=== PATIENT | male | born 1960 | race Caucasian/White ===

== ENCOUNTER 2018-10-30 02:44 | Inpatient (IN) ==
[2018-10-30] MEDS ORDERED: MORPHINE 4 MG/1 ML VIAL IV STA (03:11)
[2018-10-30] MEDS ORDERED: ONDANSETRON 4 MG/2 ML VIAL IV STA (03:12)
[2018-10-30] MEDS ORDERED: ASPIRIN 325 MG TABLET PO STA (03:13)
[2018-10-30] MEDS ORDERED: NITROGLYCERIN 2% OINT 1 INCH/GM PACK TOP STA (03:13)
[2018-10-30] MEDS ORDERED: ENOXAPARIN 100 MG/ML SYRINGE SUBCUT STA (03:13)
[2018-10-30 03:14] LABS: Basophils # 0.1 10*3/uL (0.0-0.2); Basophils % 0.8 % (0.0-0.8); Eosinophils # 0.2 10*3/uL (0.0-0.87); Eosinophils % 1.9 % (0.00-10.9); Hematocrit 46.5 VOL% (42.0-52.0); Hemoglobin 15.9 GM/DL (14.0-18.0); Immature Granulocytes % 0.2 %; Immature Granulocytes Absolute 0.02 #; Lymphocytes % 32.1 % (21.2-54.2); Mean Corpuscular HGB Conc 34.2 GM/DL (32-36); Mean Corpuscular Hemoglobin 30 PG (27-34); Mean Corpuscular Volume 87.7 FL (87-102); Monocytes # 0.7 10*3/uL (0.11-0.8); Monocytes % 7.5 % (1.7-12.7); Neutrophils # 5.4 10*3/uL (1.4-7.4); Neutrophils % 57.5 % (38.7-73.9); Platelet Count 171 T/CUMM (130-400); Red Cell Distribution Width 13.4 % (9.3-17.3); White Blood Count 9.5 T/CUMM (4-12)
[2018-10-30 03:26] LABS: INR 0.9; PT Patient Result 9.9 SECS; Partial Thromboplastin Time 26.4 SECS (0-40)
[2018-10-30 03:37] LABS: Bilirubin,Total 0.4 MG/DL (0.2-1.0); Calcium 9.3 MG/DL (8.5-10.1); Osmolality,Calculated 281.5 MOS/KG (273-304); Potassium 3.8 MMOL/L (3.5-5.1); Total Protein 7.7 G/DL (6.4-8.3)
[2018-10-30] MEDS ORDERED: NITROGLYCERIN DRIP 50 MG/250 ML BOTTLE IV ONE (03:44)
[2018-10-30] MEDS: NITROGLYCERIN DRIP 50 MG/250 ML BOTTLE IV SCH (03:53)
[2018-10-30] MEDS ORDERED: TIROFIBAN IV ONE ×2 (04:00→04:10)
[2018-10-30] MEDS ORDERED: TIROFIBAN 5,000 MCG/100 ML PREMIX IV ONE ×2 (04:00→07:35)
[2018-10-30] MEDS ORDERED: NITROGLYCERIN DRIP 50 MG/250 ML BOTTLE IV PRN (04:20)
[2018-10-30] MEDS ORDERED: TIROFIBAN 5,000 MCG/100 ML PREMIX IV SCH ×2 (04:30→09:00)
[2018-10-30] MEDS: SODIUM CHLORIDE 0.9% 1,000 ML IV SCH ×3 (04:35→20:15)
[2018-10-30] MEDS ORDERED: HYDROmorphone 2 MG/1 ML VIAL ONE (06:53)
[2018-10-30] MEDS ORDERED: MIDAZOLAM 2 MG/2 ML VIAL ONE ×2 (06:53→08:24)
[2018-10-30] MEDS ORDERED: TICAGRELOR 90 MG TABLET ONE (08:37)
[2018-10-30] MEDS ORDERED: ZALEPLON 5 MG CAPSULE PO PRN (08:38)
[2018-10-30] MEDS ORDERED: NITROGLYCERIN SL 0.4 MG TABLET SL PRN (08:38)
[2018-10-30] MEDS: ASPIRIN EC 81 MG TABLET PO SCH (10:06)
[2018-10-30] MEDS: CARVEDILOL 12.5 MG TABLET PO SCH ×2 (10:06→20:10)
[2018-10-30] MEDS: ACETAMINOPHEN 325 MG TABLET PO PRN ×2 (13:21→20:15)
[2018-10-30] MEDS: ROSUVASTATIN 20 MG TABLET PO SCH (20:10)
[2018-10-30] MEDS: TICAGRELOR 90 MG TABLET PO SCH (20:10)
[2018-10-30] MEDS: HYDROmorphone 2 MG/1 ML VIAL IV PRN (21:40)
[2018-10-31] MEDS: HYDROmorphone 2 MG/1 ML VIAL IV PRN ×2 (03:29→08:20)
[2018-10-31] MEDS: NITROGLYCERIN DRIP 50 MG/250 ML BOTTLE IV SCH (04:13)
[2018-10-31] MEDS: SODIUM CHLORIDE 0.9% 1,000 ML IV SCH ×2 (04:13→14:31)
[2018-10-31 05:22] LABS: Basophils % 0.4 % (0.0-0.8); Eosinophils # 0.2 10*3/uL (0.0-0.87); Eosinophils % 2.2 % (0.00-10.9); Hematocrit 38.5 VOL% (42.0-52.0); Hemoglobin 12.8 GM/DL (14.0-18.0); Immature Granulocytes % 0.1 %; Immature Granulocytes Absolute 0.01 #; Lymphocytes # 2.2 10*3/uL (1.4-4.0); Mean Corpuscular HGB Conc 33.2 GM/DL (32-36); Mean Corpuscular Hemoglobin 30 PG (27-34); Mean Corpuscular Volume 90.2 FL (87-102); Mean Platelet Volume 11.3 FL (9.6-12.0); Monocytes # 0.6 10*3/uL (0.11-0.8); Monocytes % 8.3 % (1.7-12.7); Neutrophils # 4.1 10*3/uL (1.4-7.4); Platelet Count 117 T/CUMM (130-400); Red Blood Count 4.27 MC/CUMM (3.8-5.5); Red Cell Distribution Width 13.4 % (9.3-17.3); White Blood Count 7.2 T/CUMM (4-12)
[2018-10-31 05:55] LABS: CKMB % 5.8 %; Osmolality,Calculated 277.5 MOS/KG (273-304); Potassium 3.8 MMOL/L (3.5-5.1)
[2018-10-31] MEDS: ACETAMINOPHEN 325 MG TABLET PO PRN (07:45)
[2018-10-31] MEDS ORDERED: LOSARTAN 25 MG TABLET PO SCH (09:00)
[2018-10-31] MEDS: CARVEDILOL 12.5 MG TABLET PO SCH ×2 (09:15→20:37)
[2018-10-31] MEDS: TICAGRELOR 90 MG TABLET PO SCH ×2 (09:15→20:39)
[2018-10-31] MEDS: ASPIRIN EC 81 MG TABLET PO SCH (09:15)
[2018-10-31] MEDS ORDERED: KETOROLAC 30 MG/1 ML VIAL IV ONE (10:25)
[2018-10-31] MEDS ORDERED: PROMETHAZINE INJ 12.5 MG in SODIUM CHLORIDE 0.9% 50 ML IV ONE (10:25)
[2018-10-31] MEDS ORDERED: diphenhydrAMINE CAP 25 MG CAPSULE PO PRN (12:56)
[2018-10-31] MEDS ORDERED: ALBUTEROL/IPRATROPIUM 3 ML NEB RESP TX PRN (12:57)
[2018-10-31] MEDS ORDERED: VILAZODONE HCL 40 MG PO SCH (12:57)
[2018-10-31] MEDS ORDERED: FLUTICASONE/SALMETEROL 100-50 DISKUS 14 DOSE INH PRN (12:57)
[2018-10-31] MEDS ORDERED: FIBER PO SCH (12:57)
[2018-10-31] MEDS ORDERED: GLUCAGON 1 MG VIAL IM PRN (12:57)
[2018-10-31] MEDS ORDERED: MAGNESIUM HYDROXIDE SUSP 30 ML UDCUP PO PRN (12:57)
[2018-10-31] MEDS ORDERED: NON-FORMULARY MEDICATION (Ergocalciferol (Vitamin D2) [Vitamin D2] 2,000 UNIT) PO SCH (12:57)
[2018-10-31] MEDS ORDERED: DEXTROSE 50% 25 GM/50 ML SYRINGE IV PRN (12:57)
[2018-10-31] MEDS ORDERED: MOMETASONE FUROATE 110 MCG INH PRN (12:57)
[2018-10-31] MEDS: ASCORBIC ACID 500 MG TABLET PO SCH (13:20)
[2018-10-31] MEDS: CHOLECALCIFEROL 1,000 UNIT TABLET PO SCH (13:20)
[2018-10-31] MEDS: MONTELUKAST 10 MG TABLET PO SCH ×2 (13:20→20:36)
[2018-10-31] MEDS: INSULIN LISPRO 100 UNIT/ML SUBCUT SCH (16:50)
[2018-10-31] MEDS: ROSUVASTATIN 20 MG TABLET PO SCH (20:36)
[2018-10-31] MEDS: ENALAPRIL 5 MG TABLET PO SCH (20:38)
[2018-11-01 04:45] LABS: Basophils # 0.1 10*3/uL (0.0-0.2); Basophils % 0.8 % (0.0-0.8); Eosinophils # 0.2 10*3/uL (0.0-0.87); Eosinophils % 3.2 % (0.00-10.9); Hematocrit 43.6 VOL% (42.0-52.0); Hemoglobin 14.7 GM/DL (14.0-18.0); Immature Granulocytes % 0.3 %; Immature Granulocytes Absolute 0.02 #; Lymphocytes # 1.7 10*3/uL (1.4-4.0); Lymphocytes % 22.6 % (21.2-54.2); Mean Corpuscular HGB Conc 33.7 GM/DL (32-36); Mean Corpuscular Hemoglobin 30 PG (27-34); Mean Platelet Volume 11.1 FL (9.6-12.0); Monocytes # 0.5 10*3/uL (0.11-0.8); Neutrophils # 4.9 10*3/uL (1.4-7.4); Neutrophils % 66.1 % (38.7-73.9); Platelet Count 132 T/CUMM (130-400); Red Cell Distribution Width 13.4 % (9.3-17.3); White Blood Count 7.4 T/CUMM (4-12)
[2018-11-01] MEDS: INSULIN LISPRO 100 UNIT/ML SUBCUT SCH ×2 (05:10→08:16)
[2018-11-01] MEDS: HYDROmorphone 2 MG/1 ML VIAL IV PRN ×2 (05:12→08:45)
[2018-11-01 05:24] LABS: Risk Ratio 4.91
[2018-11-01 05:25] LABS: Blood Urea Nitrogen 12 MG/DL (7-18); Calcium 8.6 MG/DL (8.5-10.1); Glucose 142 MG/DL (74-106); Osmolality,Calculated 280.4 MOS/KG (273-304); Sodium 140 MMOL/L (136-145)
[2018-11-01] MEDS: CHOLECALCIFEROL 1,000 UNIT TABLET PO SCH (08:39)
[2018-11-01 08:40] VITALS: BP 129/74
[2018-11-01] MEDS: MONTELUKAST 10 MG TABLET PO SCH (08:40)
[2018-11-01] MEDS: CARVEDILOL 12.5 MG TABLET PO SCH (08:40)
[2018-11-01] MEDS: TICAGRELOR 90 MG TABLET PO SCH (08:40)
[2018-11-01] MEDS: ASCORBIC ACID 500 MG TABLET PO SCH (08:40)
[2018-11-01] MEDS: ENALAPRIL 5 MG TABLET PO SCH (08:40)
[2018-11-01] MEDS: ASPIRIN EC 81 MG TABLET PO SCH (08:40)
== END 2018-11-01 10:32 | disposition home or self-care (01) | DRG 247 ==
LOC: N.ED 02:44 → N.EDINP 04:20 → N.ICU 06:42 → N.TELES 10-31 15:00
PROVIDERS: ADMIT Internal Medicine Cardiovascular Disease; ATTEND Internal Medicine Cardiovascular Disease